=== PATIENT | male | born 1960 | race Caucasian/White ===

== ENCOUNTER 2018-09-14 23:20 | Emergency (ER) | payer MEDICAID, MEDICARE ==
[~2018-09-14] VITALS: Ht 170.2 cm; Wt 92.0 kg
[2018-09-14 23:25] VITALS: BP 107/74
--- NOTE | 2018-09-14 23:40 | NUR ---
ERP AT BEDSIDE.
[2018-09-14] MEDS ORDERED: IBUPROFEN 800 MG TABLET PO STA (23:41)
[2018-09-14] MEDS ORDERED: DEXAMETHASONE 4 MG TABLET PO STA (23:41)
[2018-09-14] MEDS ORDERED: IBUPROFEN 800 MG TABLET ONE (23:45)
[2018-09-14] MEDS ORDERED: DEXAMETHASONE 4 MG TABLET ONE (23:45)
--- NOTE | 2018-09-14 23:49 | NUR ---
PT TO XRAY VIA STRETCHER.
== END 2018-09-15 01:02 | disposition home or self-care (01) ==
LOC: ED 23:30
DX: J44.1 Chronic obstructive pulmonary disease with (acute) exacerbation (principal); J02.8 Acute pharyngitis due to other specified organisms
CPT/HCPCS: 71046; 99283

== ENCOUNTER 2018-10-08 04:15 | Emergency (ER) | payer MEDICARE ==
[~2018-10-08] VITALS: Ht 170.2 cm; Wt 90.0 kg
--- NOTE | 2018-10-08 04:31 | NUR ---
58 Y/O MALE BIB [facility] FOR NEAR SYNCOPAL EPISODE. PT REPORTS "I THINK I PASSED OUT. I WOKE UP ON THE GROUND". HE STATES HE WAS PUSHING HIS SHOPPING CART WITH HIS BELONGINGS IN IT. HE WAS ABLE TO WALK TO [employer] AND CALL 911. PT ALSO REPORTS "I HAVE NOT EATEN ANYTHING ALL DAY". FSBS 96. PT DENIES ANY CP, SOB, WEAKNESS, DIZZINESS. EMS REPORT PT WAS CAOX4 WITH A GCS OF 15 UPON THEIR ARRIVAL. EMS ESTABLISHED IV AND ADMINISTERED 500ML OF NS. PT REMAINS ALERT WITH NO COMPLAINTS UPON ARRIVAL. ALL VITALS STABLE. MONITORING EQUIPMENT APPLIED. SHOWING SINUS TACH AT 110, NO ECTOPY NOTED. NO ST CHANGES PRESENT. WARM BLANKET PROVIDED. WILL CONTINUE TO MONITOR.
--- NOTE | 2018-10-08 04:46 | NUR ---
[place], [place] AT BEDSIDE EVALUATING PT
--- NOTE | 2018-10-08 05:13 | NUR ---
PT BACK FROM IMAGING
[2018-10-08 05:32] LABS: BASOPHILS # (AUTO) 0.05 x10^3/uL (0-0.1); BASOPHILS % (AUTO) 1 % (0-1); EOSINOPHILS # (AUTO) 0.07 x10^3/uL (0-0.4); EOSINOPHILS % (AUTO) 1 % (1-7); LYMPHOCYTES # (AUTO) 0.94 x10^3/uL (1-3.4); LYMPHOCYTES % (AUTO) 17 % (22-44); MD NO; MEAN CORPUSCULAR HEMOGLOBIN 30.7 pg (27.5-34.5); MEAN CORPUSCULAR HGB CONC 34.5 g/dL (33.2-36.2); MEAN CORPUSCULAR VOLUME 89.2 fL (81-97); MEAN PLATELET VOLUME 9.8 fL (7.4-10.4); MONOCYTES # (AUTO) 0.59 x10^3/uL (0.2-0.8); MONOCYTES % (AUTO) 11 % (2-9); NEUTROPHILS # (AUTO) 3.82 x10^3/uL (1.8-6.8); NEUTROPHILS % (AUTO) 70 % (42-75); PLATELET COUNT 188 x10^3/uL (130-400); RED BLOOD COUNT 4.83 x10^6/uL (4.38-5.82); RED CELL DISTRIBUTION WIDTH 13.5 % (9.4-14.8)
[2018-10-08 05:47] LABS: ALBUMIN 3.6 g/dL (3.4-5.0); ANION GAP 5 mmol/L (5-15); CALCIUM 8.6 mg/dL (8.5-10.1); CHLORIDE 109 mmol/L (98-107)
[2018-10-08 05:53] LABS: TROPONIN I < 0.015 ng/mL (0.000-0.045)
--- NOTE | 2018-10-08 06:10 | NUR ---
REPORT FROM ADDI BONILLA.
--- NOTE | 2018-10-08 06:16 | NUR ---
REPORT TO IRENE MEYER
--- NOTE | 2018-10-08 06:34 | NUR ---
PT SLEEPING, APPEARS COMFORTABLE. BREATHING E/U. NO DISTRESS NOTED, CALL LIGHT IN REACH. PT CONTINUES ON CARDIAC AND VS MONITORING.
[2018-10-08 06:51] VITALS: BP 101/66
--- NOTE | 2018-10-08 06:56 | NUR ---
PT VERABLIZED UNDERSTANDING OF D/C INSTRUCTIONS, IV REMOVED, TIP INTACT. PT IN ROOM GETTING DRESSED.
== END 2018-10-08 07:07 | disposition home or self-care (01) ==
LOC: ED 05:45
DX: R55 Syncope and collapse (principal); J44.9 Chronic obstructive pulmonary disease, unspecified; Z59.0 Homelessness; Z87.891 Personal history of nicotine dependence
CPT/HCPCS: 36415; 71046; 80048; 82040; 83690; 83880; 84484; 85025; 93005; 99284